=== PATIENT | female | born 1945 | race Caucasian/White ===

== ENCOUNTER 2017-11-21 14:03 | Outpatient (CLI) | payer MEDICARE, BC ==
--- NOTE | 2017-11-21 19:40 | HP ---
DATE OF SERVICE: 11/21/2017 HISTORY OF PRESENT ILLNESS: Ms. Marika Boone is a very pleasant 72-year-old, accompanied by her , who presents to the Wound Center for evaluation of an ulceration of the left medial lower leg. The patient states that she fell on 10/12/2017 and cut her left medial lower leg on one of the brakes of her walker. The patient states she was seen in the Emergency Department at [facility] where 5 interrupted sutures were placed to close the left medial lower leg wound. The patient states that she was seen by her primary care physician 7 days later. She states that at this time her doctor decided to defer suture removal. The interrupted sutures instead were discontinued 12 days after suture placement. The patient states that the day after the sutures were discontinued, the wound opened resulting in an ulceration of the left medial lower leg. PAST MEDICAL HISTORY: 1. History of breast carcinoma in 2002. 2. Parkinson's. 3. Osteoporosis. 4. Compression fracture x2 of lumbar spine. 5. Vertebral stenosis. 6. Scoliosis. PAST SURGICAL HISTORY: 1. Lumpectomy in addition to radiation therapy and chemotherapy. 2. Appendectomy. 3. Repair of rectovaginal fistula. MEDICATIONS: 1. Amantadine. 2. B complex vitamins. 3. Bioflex. 4. Calcium/magnesium oxide/vitamin D3. 5. Sinemet. 6. Vitamin D3. 7. Cosopt. 8. Duloxetine. 9. Fluticasone 10. Fluticasone/vilanterol. 11. Gaviscon. 12. ICaps. 13. Ibuprofen. 14. Levsin/SL. 15. Magnesium hydroxide. 16. Mirapex. 17. Lyrica. 18. Teriparatide. 19. Vitamin E. 20. Xalatan. 21. Zolpidem. ALLERGIES: CODEINE, NORCO, LOPERAMIDE, MORPHINE. SOCIAL HISTORY: Social history is significant for tobacco use of up to 1-1/2 packs of cigarettes per day for 20 years. The patient states that she stopped smoking 25 years ago. Social history is negative for ETOH use. FAMILY HISTORY: Family history is negative for diabetes mellitus or coronary artery disease. PHYSICAL EXAMINATION: VITAL SIGNS: Temperature 97.8, pulse 98, respirations 19, blood pressure 111/ 59. GENERAL: A 72-year-old female, sitting on chair in examination room, in no acute distress. HEENT: Normocephalic, atraumatic. NECK: No nuchal rigidity. CHEST: Clear to auscultation. CARDIOVASCULAR: Regular rate and rhythm. ABDOMEN: Soft. EXTREMITIES: An ulceration of the left medial lower leg is present, which measures approximately 1.9 x 3.0 cm. Necrotic and nonviable tissue present within the wound margins was debrided with an excisional full-thickness debridement with the use of scissors. No purulent drainage is associated with the wound. No erythema of the skin surrounding the wound is present. No maceration of the skin of the periwound is noted. A dorsalis pedis and posterior tibial pulse are both palpable on the left. No significant edema of the left foot or lower leg is present on exam today. ASSESSMENT AND PLAN: 1. Chronic venous hypertension with ulceration. Silverlon, Webril, and the 3M Coban two-layer compression system will be applied to the ulceration today. No antibiotics will be prescribed based upon the appearance of the wound. Orders will be transmitted to Home Health for dressing changes of Silverlon, Webril, and the 3M Coban 2 layer compression system 1-2 times per week between the patient's visits in the Wound Center. I will see Ms. Boone again in one week. The patient understands and is in agreement with the preceding treatment plan. 2. History of breast carcinoma. 3. Parkinson's. 4. Osteoporosis. 5. Compression fracture x2 of lumbar spine. 6. Vertebral stenosis. 7. Scoliosis. MTDD
[2017-11-26] MEDS ORDERED: Sodium Chloride 0.9% 15 ML NEB ONE (16:50)
[2017-11-26] MEDS ORDERED: Lidocaine 2% Jelly 5 ML TUBE ONE (16:50)
== END 2017-11-21 14:04 | disposition home or self-care (01) ==
LOC: WCC 14:03
PROVIDERS: ATTEND Family Medicine
DX: I87.312 Chronic venous hypertension (idiopathic) with ulcer of left lower extremity (principal); L97.929 Non-pressure chronic ulcer of unspecified part of left lower leg with unspecified severity; Z85.3 Personal history of malignant neoplasm of breast; G20 Parkinson's disease; M81.0 Age-related osteoporosis without current pathological fracture; M48.56XD Collapsed vertebra, not elsewhere classified, lumbar region, subsequent encounter for fracture with routine healing; M48.00 Spinal stenosis, site unspecified; M41.9 Scoliosis, unspecified
CPT/HCPCS: 11042; 97139; G0463; 99203

== ENCOUNTER 2017-12-03 13:30 | Outpatient (CLI) | payer MEDICARE, BC ==
[~2017-12-03 13:30] MED LIST: Lidocaine 2% Jelly 5 ML TUBE ONE; Sodium Chloride 0.9% 15 ML NEB ONE
--- NOTE | 2017-12-03 15:22 | PRG ---
DATE OF SERVICE: 12/03/2017 HISTORY: Ms. Marika Boone is a very pleasant 72-year-old who presents to the Wound Center for evaluation of an ulceration of the left medial lower leg. The patient previously stated that she fell on 10/12/2017 and cut her left medial lower leg on one of the brakes of her walker. The patient stated she was seen in the Emergency Department at [facility] where 5 interrupted sutures were placed to close the left medial lower leg wound. The patient stated that she was seen by her primary care physician 7 days later. She stated that at this time her doctor decided to defer suture removal. The interrupted sutures instead were discontinued 12 days after suture placement. The patient stated that the day after the sutures were discontinued, the wound opened, resulting in an ulceration of the left medial lower leg. After being seen in the Wound Center, the ulceration was treated with the application of Silverlon, Webril, and the 3M Coban 2-layer compression system. The patient has been receiving dressing changes of Silverlon, Webril, and the 3M Coban 2-layer compression system 1 to 2 times per week with the assistance of Home Health. PHYSICAL EXAMINATION: VITAL SIGNS: Stable. Afebrile. EXTREMITIES: An ulceration of the left medial lower leg is present, which measures approximately 2.9 x 1.4 cm. The dimensions of the wound at the time of the patient's last visit were approximately 1.9 x 3.0 cm. The wound is granulating. Necrotic and nonviable tissue present within the wound margins was debrided with an excisional full-thickness debridement with the use of a curette. No purulent drainage is associated with the wound. No erythema of the skin surrounding the wound is present. No maceration of the skin of the periwound is noted. A dorsalis pedis pulse is palpable on the left. No significant edema of the left foot or lower leg is present on exam today. ASSESSMENT AND PLAN: 1. Chronic venous hypertension with ulceration. Silverlon, Webril, and the 3M Coban 2-layer compression system will be applied to the ulceration today. Orders will again be transmitted to Home Health for dressing changes of Silverlon, Webril, and the 3M Coban 2-layer compression system 1 to 2 times per week between the patient's visits to the Wound Center. I will see Ms. Boone again in two weeks. 2. History of breast carcinoma. 3. Parkinson's. 4. Osteoporosis. 5. Compression fracture x2 of lumbar spine. 6. Vertebral stenosis. 7. Scoliosis. MTDD
== END 2017-12-03 13:31 | disposition home or self-care (01) ==
LOC: WCC 13:30
PROVIDERS: ATTEND Family Medicine
DX: I87.312 Chronic venous hypertension (idiopathic) with ulcer of left lower extremity (principal); L97.929 Non-pressure chronic ulcer of unspecified part of left lower leg with unspecified severity; Z85.3 Personal history of malignant neoplasm of breast; G20 Parkinson's disease; M81.0 Age-related osteoporosis without current pathological fracture; S32.029A Unspecified fracture of second lumbar vertebra, initial encounter for closed fracture; M48.00 Spinal stenosis, site unspecified; M41.9 Scoliosis, unspecified
CPT/HCPCS: 11042; A4218

== ENCOUNTER 2017-12-17 13:17 | Outpatient (CLI) | payer MEDICARE, BC ==
[2017-12-17] MEDS ORDERED: Sodium Chloride 0.9% 15 ML NEB ONE (14:23)
--- NOTE | 2017-12-17 15:14 | PRG ---
DATE OF SERVICE: 12/17/2017 HISTORY: Ms. Marika Boone is a very pleasant 72-year-old who presents to the Wound Center for evaluation of an ulceration of the left medial lower leg. The patient previously stated that she fell on 10/12/2017 and cut her left medial lower leg on one of the brakes of her walker. The patient stated she was seen in the Emergency Department at [facility] where 5 interrupted sutures were placed to close the left medial lower leg wound. The patient stated that she was seen by her primary care physician 7 days later. She stated that at this time her doctor decided to defer suture removal. The interrupted sutures instead were discontinued 12 days after suture placement. The patient stated that the day after the sutures were discontinued, the wound opened resulting in an ulceration of the left medial lower leg. After being seen in the Wound Center, the ulceration was treated with the application of Silverlon, Webril, and the 3M Coban 2-layer compression system. The patient has been receiving dressing changes of Silverlon, Webril, and the 3M Coban 2-layer compression system 1-2 times per week with the assistance of Home Health. PHYSICAL EXAMINATION: VITAL SIGNS: Temperature 98.0, pulse 96, respirations 17, blood pressure 107/ 60. EXTREMITIES: An ulceration of the left medial lower leg is present, which measures approximately 2.5 x 1.0 cm. The dimensions of the wound at the time of the patient's last visit were approximately 2.9 x 1.4 cm. The wound is granulating. Necrotic and nonviable tissue present within the wound margins was debrided with an excisional full-thickness debridement. No purulent drainage is associated with the wound. No erythema of the skin surrounding the wound is present. No maceration of the skin of the periwound is noted. A dorsalis pedis pulse is palpable on the left. A posterior tibial pulse is also palpable on the left. No significant edema of the left foot or lower leg is present on exam today. ASSESSMENT AND PLAN: 1. Chronic venous hypertension with ulceration. Promogran, Silverlon, Webril, and the 3M Coban 2-layer compression system will be applied to the ulceration today. Orders will be transmitted to Home Health for dressing changes of Promogran, Silverlon, Webril, and the 3M Coban 2-layer compression system 1-2 times per week between the patient's visits to the Wound Center. I will see Ms. Boone again in 3 weeks. 2. History of breast carcinoma. 3. Parkinson's. 4. Osteoporosis. 5. Compression fracture x2 of lumbar spine. 6. Vertebral stenosis. 7. Scoliosis. MTDD
== END 2017-12-17 13:18 | disposition home or self-care (01) ==
LOC: WCC 13:17
PROVIDERS: ATTEND Family Medicine
DX: I87.312 Chronic venous hypertension (idiopathic) with ulcer of left lower extremity (principal); L97.929 Non-pressure chronic ulcer of unspecified part of left lower leg with unspecified severity; G20 Parkinson's disease; M81.0 Age-related osteoporosis without current pathological fracture; S32.029A Unspecified fracture of second lumbar vertebra, initial encounter for closed fracture; M48.00 Spinal stenosis, site unspecified; M41.9 Scoliosis, unspecified; Z85.3 Personal history of malignant neoplasm of breast
CPT/HCPCS: 11042; A4218

== ENCOUNTER 2018-01-07 13:46 | Outpatient (CLI) | payer MEDICARE, BC ==
--- NOTE | 2018-01-07 15:27 | PRG ---
DATE OF SERVICE: 01/07/2018 HISTORY: Ms. Marika Boone is a very pleasant 72-year-old who presents to the Wound Center for evalua tion of an ulceration of the left medial lower leg. The patient previously stated that she fell on 12/13/2016 and cut her left medial lower leg one of the brakes of her walker. The patient stated she was seen in the Emergency Department at [facility] where 5 interrupted sutures were placed to cl ose the left medial lower leg wound. The patient stated that she was seen by her primary care physic chaya in 7 days later. She stated that at this time her doctor decided to defer suture removal. The i nterrupted sutures instead were discontinued 12 days after suture placement. The patient stated that the day after the sutures were discontinued, the wound opened resulting in an ulceration of the left medial lower leg. After being seen in the Wound Center, the ulceration was treated with the applica tion of Silverlon, Webril, and 3M Coban 2 layer compression system. More recently, the patient has b een receiving dressing changes of Promogran, Silverlon, Webril, and 3M Coban 2 layer compression syst em 1-2 times per week with the assistance of Home Health. PHYSICAL EXAMINATION: VITAL SIGNS: Temperature 98.0, pulse 90, respirations 19, blood pressure 157/72. EXTREMITIES: An ulceration of the left medial lower leg is present which measures approximately 1.0 x 0.5 cm. The wound is granulating. Necrotic and nonviable tissue present within the wound margins was debrided with an excisional full-thickness debridement. No purulent drainage is associated with the wound. No erythema of the skin surrounding the wound is present. No maceration of the skin of t he periwound is noted. A dorsalis pedis pulse is palpable on the left. No significant edema of the left foot or lower leg is present on exam today. ASSESSMENT AND PLAN: 1. Chronic venous hypertension with ulceration. Promogran, Silverlon, Webril, and the 3M Coban 2-la lucas compression system will be applied to the ulceration today. Orders will be transmitted to [facility] for dressing changes of Promogran, Silverlon, Webril, and the 3M Coban 2 layer compression syst em 1-2 times per week between the patient's visits to the Wound Center. I will see Ms. Boone again in 3 weeks if her wound is still present at this time. 2. History of breast carcinoma. 3. Parkinson's. 4. Osteoporosis. 5. Compression fracture x2 of lumbar spine. 6. Vertebral stenosis. 7. Scoliosis.
[2018-01-07] MEDS ORDERED: Sodium Chloride 0.9% 15 ML NEB ONE (19:47)
== END 2018-01-07 13:47 | disposition home or self-care (01) ==
LOC: WCC 13:46
PROVIDERS: ATTEND Family Medicine
DX: I87.312 Chronic venous hypertension (idiopathic) with ulcer of left lower extremity (principal); G20 Parkinson's disease; M81.0 Age-related osteoporosis without current pathological fracture; M48.00 Spinal stenosis, site unspecified; S32.009A Unspecified fracture of unspecified lumbar vertebra, initial encounter for closed fracture; M41.9 Scoliosis, unspecified; Z85.3 Personal history of malignant neoplasm of breast
CPT/HCPCS: A4218

== ENCOUNTER 2018-01-31 13:30 | Outpatient (CLI) | payer MEDICARE, BC ==
--- NOTE | 2018-01-31 15:27 | PRG ---
DATE OF SERVICE: 01/31/2018 HISTORY: Ms. Marika Boone is a very pleasant 72-year-old who presents to the Wound Center for evaluation of an ulceration of the left medial lower leg. The patient previously stated that she fell on 10/12/2017 and cut her left medial lower leg on one of the brakes of her walker. The patient stated she was seen in the Emergency Department at [facility] where 5 interrupted sutures were placed to close the left medial lower leg wound. The patient stated that she was seen by her primary care physician 7 days later. She stated that at this time her doctor decided to defer suture removal. The interrupted sutures instead were discontinued 12 days after suture placement. The patient stated that the day after the sutures were discontinued, the wound opened, resulting in an ulceration of the left medial lower leg. After being seen in the Wound Center, the ulceration was treated with the application of Silverlon, Webril and the 3M Coban 2-layer compression system. More recently, the patient has been receiving dressing changes of Promogran, Silverlon, Webril, and the 3M Coban 2-layer compression system 1-2 times per week with the assistance of Home Health. PHYSICAL EXAMINATION: VITAL SIGNS: Temperature 97.7, pulse 92, respirations 18, and blood pressure 127/65. EXTREMITIES: An ulceration of the left medial lower leg is present, which measures approximately 1.0 x 0.5 cm. The depth of the wound, however, is significantly less than at the time of the patient's last visit. The wound is granulating. Necrotic and nonviable tissue present within the wound margins was debrided with an excisional full-thickness debridement with the use of a curette. No purulent drainage is associated with the wound. No cellulitis of the left lower leg is appreciated. No maceration of the skin of the periwound is noted. A dorsalis pedis pulse is easily palpable on the left. No significant edema of the left foot or lower leg is present on exam today. ASSESSMENT AND PLAN: 1. Chronic venous hypertension with ulceration. Promogran, Silverlon, Webril, and the 3M Coban 2-layer compression system will be applied to the ulceration today. Orders will be transmitted to Home Health for dressing changes of Promogran, Silverlon, Webril, and the 3M Coban 2-layer compression system 1-2 times per week. I will see Ms. Boone again in 2 weeks if her wound is still present at this time. 2. History of breast carcinoma. 3. Parkinson's. 4. Osteoporosis. 5. Compression fracture x2 of lumbar spine. 6. Vertebral stenosis. 7. Scoliosis. MTDD
== END 2018-01-31 13:31 | disposition home or self-care (01) ==
LOC: WCC 13:30
PROVIDERS: ATTEND Family Medicine
DX: I87.312 Chronic venous hypertension (idiopathic) with ulcer of left lower extremity (principal); L97.929 Non-pressure chronic ulcer of unspecified part of left lower leg with unspecified severity; Z85.3 Personal history of malignant neoplasm of breast; G20 Parkinson's disease; M81.0 Age-related osteoporosis without current pathological fracture; S32.029A Unspecified fracture of second lumbar vertebra, initial encounter for closed fracture; M48.00 Spinal stenosis, site unspecified; M41.9 Scoliosis, unspecified
CPT/HCPCS: 11042; A4218

== ENCOUNTER 2018-02-27 13:53 | Outpatient (CLI) | payer MEDICARE, BC ==
--- NOTE | 2018-02-27 14:46 | PRG ---
DATE OF SERVICE: 02/27/2018 HISTORY: Ms. Marika Boone is a very pleasant 72-year-old who presents to the Wound Center for evalua tion of an ulceration of the left medial lower leg. After being seen in the Wound Center, the ulcera tion was treated with the application of Silverlon, Webril, and 3m Coban 2 layer compression system. Subsequently, the patient was treated with dressing changes of Promogran, Silverlon, Webril, and the 3m Coban 2 layer compression system with dressing changes being performed with the assistance of [facility] [employer]. The patient states that at the time of her visit by [facility] one week ago, 3m Coban 2 l garett compression system was not reapplied as per the patient's request. Instead, Promogran, Silverlo n, and Optifoam were applied to the ulceration. PHYSICAL EXAMINATION: VITAL SIGNS: Temperature 98, pulse 77, respirations 20, blood pressure 146/69. EXTREMITIES: The ulceration of the left medial lower leg measures approximately 2.0 x 0.9 cm. The d imensions of the wound at the time of the patient's visit on 01/31/2018 were approximately 1.0 x 0.5 cm. The wound is granulating. Necrotic and nonviable tissue present within the wound margins was de brided with an excisional full-thickness debridement with the use of a curette. No purulent drainage is associated with the wound. No cellulitis of the left lower leg is present. No maceration of the skin of the periwound is noted. A dorsalis pedis pulse is easily palpable on the left. Edema of th e left foot and lower leg is present on exam today. Discoloration of the skin of the left lower leg is also present secondary to hemosiderin deposition. ASSESSMENT AND PLAN: 1. Chronic venous hypertension with ulceration. Again, the patient declines application of the 3m C oban 2 layer compression system today. Therefore dressing changes of Medihoney, 4 x 4s and Optifoam or Mepilex border will be initiated. These dressing changes are to be performed 3 times per week aft er cleansing and irrigation with the assistance of [facility]. I will see Ms. Boone again in two week s. I have explained to the patient should the ulceration fail to improve in its appearance, consider ation will need to be given to resumption of treatment with the 3m Coban 2 layer compression system. Ms. Boone and her understands and are in agreement with the preceding treatment plan. 2. History of breast carcinoma. 3. Parkinson's. 4. Osteoporosis. 5. Compression fracture x2 of lumbar spine. 6. Vertebral stenosis. 7. Scoliosis.
== END 2018-02-27 13:54 | disposition home or self-care (01) ==
LOC: WCC 13:53
PROVIDERS: ATTEND Family Medicine
DX: I87.312 Chronic venous hypertension (idiopathic) with ulcer of left lower extremity (principal); L97.229 Non-pressure chronic ulcer of left calf with unspecified severity; G20 Parkinson's disease; M81.0 Age-related osteoporosis without current pathological fracture; M48.00 Spinal stenosis, site unspecified; M41.9 Scoliosis, unspecified; S32.009D Unspecified fracture of unspecified lumbar vertebra, subsequent encounter for fracture with routine healing
CPT/HCPCS: 11042

== ENCOUNTER 2018-03-13 14:44 | Outpatient (CLI) | payer MEDICARE, BC ==
--- NOTE | 2018-03-14 13:49 | PRG ---
DATE OF SERVICE: 03/13/2018 HISTORY: Ms. Marika Boone is a very pleasant 72-year-old who presents to the Wound Center for evalua tion of an ulceration of the left medial lower leg. The patient is accompanied by her son-in-law carlitos julio. Ms. Boone reports a significant increase in the size of her left medial lower leg ulceration since her last visit. The patient has no other complaints today. She denies any fever or chills. PHYSICAL EXAMINATION: VITAL SIGNS: Temperature 98.1, pulse 78, respirations 17, blood pressure 163/79. EXTREMITIES: The ulceration of the left medial lower leg measures approximately 3.2 x 2.3 cm. The d imensions of the wound at the time of the patient's visit on 02/27/2018 were approximately 2.0 x 0.9 cm. The wound is granulating. Nonviable tissue present within the wound margins were debrided with an excisional full-thickness debridement with the use of scissors. No purulent drainage is associate d with the wound. No cellulitis of the left lower leg is present. No maceration of the skin of the periwound is noted. A dorsalis pedis pulse is easily palpable on the left. No significant edema of the left foot or lower leg is present on exam today. Discoloration of the skin of the left lower leg is also present secondary to hemosiderin deposition. MatriStem sheet 3 x 3.5 cm was applied to the wound bed of the ulceration followed by Mepitel, a bolster of saline-moistened gauze, dry gauze, Webr il, and 3m Coban 2 layer compression system. ASSESSMENT AND PLAN: 1. Chronic venous hypertension with ulceration. MatriStem sheet was applied to the wound bed of the ulceration today. I will see Ms. Boone again in one week. At this time, consideration will be given to another placement of MatriStem. 2. History of breast carcinoma. 3. Parkinson's. 4. Osteoporosis. 5. Compression fracture x2 of lumbar spine. 6. Vertebral stenosis. 7. Scoliosis.
== END 2018-03-13 14:45 | disposition home or self-care (01) ==
LOC: WCC 14:44
PROVIDERS: ATTEND Family Medicine
DX: I87.312 Chronic venous hypertension (idiopathic) with ulcer of left lower extremity (principal); L97.829 Non-pressure chronic ulcer of other part of left lower leg with unspecified severity; G20 Parkinson's disease; M81.0 Age-related osteoporosis without current pathological fracture; M48.56XA Collapsed vertebra, not elsewhere classified, lumbar region, initial encounter for fracture; M48.00 Spinal stenosis, site unspecified; M41.9 Scoliosis, unspecified; Z85.3 Personal history of malignant neoplasm of breast
CPT/HCPCS: 97139; C5271; Q4166

== ENCOUNTER 2018-03-20 11:25 | Outpatient (CLI) | payer MEDICARE, BC ==
--- NOTE | 2018-03-20 13:12 | PRG ---
DATE OF SERVICE: 03/20/2018 HISTORY: Ms. Marika Boone is a very pleasant 72-year-old who presents to the Wound Center for evalua tion of an ulceration of the left medial lower leg. The patient is again accompanied by her songarcia suero today. At the time of the patient's last visit, MatriStem sheet was applied to the wound bed of t he ulceration. Ms. Boone has no complaints today. She denies any fever or chills. PHYSICAL EXAMINATION: VITAL SIGNS: Temperature 97.5, pulse 82, respirations 19, and blood pressure 149/70. EXTREMITIES: The ulceration of the left medial lower leg measures approximately 3.0 x 1.5 cm. The d imensions of the wound at the time of the patient's last visit were approximately 3.2 x 2.3 cm. The wound is granulating. No purulent drainage is associated with the wound. No cellulitis of the left lower leg is present. No maceration of the skin of the periwound is noted. No significant edema of the left foot or lower leg is present on exam today. Discoloration of the skin of the left lower leg is present secondary to hemosiderin deposition. MatriStem sheet 3 x 3.5 cm was applied to the wound bed of the ulceration followed by Mepitel, a bolster of saline-moistened gauze, dry gauze, Webril, a nd 3M Coban 2 layer compression system. ASSESSMENT AND PLAN: 1. Chronic venous hypertension with ulceration. MatriStem sheet was applied to the wound bed of the ulceration today. I will see Ms. Boone again in one week. At this time, consideration will be given to another placement of MatriStem. 2. History of breast carcinoma. 3. Parkinson's. 4. Osteoporosis. 5. Compression fracture x2 of lumbar spine. 6. Vertebral stenosis. 7. Scoliosis.
== END 2018-03-20 11:26 | disposition home or self-care (01) ==
LOC: WCC 11:25
PROVIDERS: ATTEND Family Medicine
DX: I87.312 Chronic venous hypertension (idiopathic) with ulcer of left lower extremity (principal); L97.229 Non-pressure chronic ulcer of left calf with unspecified severity; G20 Parkinson's disease; M81.0 Age-related osteoporosis without current pathological fracture; M48.00 Spinal stenosis, site unspecified; M41.9 Scoliosis, unspecified; S32.009A Unspecified fracture of unspecified lumbar vertebra, initial encounter for closed fracture; Z85.3 Personal history of malignant neoplasm of breast
CPT/HCPCS: C5271; Q4166-KX-JC

== ENCOUNTER 2018-03-27 14:37 | Outpatient (CLI) | payer MEDICARE, BC ==
--- NOTE | 2018-03-27 16:27 | PRG ---
DATE OF SERVICE: 03/27/2018 HISTORY: Ms. Marika Boone is a very pleasant 72-year-old who presents to the Wound Center for evaluation of an ulceration of the left medial lower leg. The patient is again accompanied by her son-in-law today. The patient is presently receiving treatment with MatriStem. Ms. Boone has no complaints today. She denies any fever or chills. PHYSICAL EXAMINATION: VITAL SIGNS: Temperature 97.4, pulse 84, respirations 19, blood pressure 131/ 67. EXTREMITIES: The ulceration of the left medial lower leg measures approximately 3.0 x 1.5 cm. The dimensions of the wound at the time of the patient's last visit were approximately 3.0 x 1.5 cm. The wound is granulating. No purulent drainage is associated with the wound. No cellulitis of the left lower leg is present. No maceration of the skin of the periwound is noted. No significant edema of the left foot or lower leg is present on exam today. Discoloration of the skin of the left lower leg is present secondary to hemosiderin deposition. MatriStem sheet 3 x 3.5 cm was applied to the wound bed of the ulceration followed by Mepitel, a bolster of saline- moistened gauze, dry gauze, Webril, and the 3M Coban 2-layer compression system. ASSESSMENT AND PLAN: 1. Chronic venous hypertension with ulceration. MatriStem sheet was applied to the wound bed of the ulceration today. Arrangements will be made for the patient to receive a dressing change of Mepitel, Webril, and the 3M Coban 2- layer compression system in 1 week with the assistance of Home Health. I will see Ms. Boone again in two weeks. At this time, consideration will be given to another placement of MatriStem. 2. History of breast carcinoma. 3. Parkinson's. 4. Osteoporosis. 5. Compression fracture x2 of lumbar spine. 6. Vertebral stenosis. 7. Scoliosis. MTDD
== END 2018-03-27 14:38 | disposition home or self-care (01) ==
LOC: WCC 14:37
PROVIDERS: ATTEND Family Medicine
DX: I87.312 Chronic venous hypertension (idiopathic) with ulcer of left lower extremity (principal); L97.929 Non-pressure chronic ulcer of unspecified part of left lower leg with unspecified severity; G20 Parkinson's disease; M81.0 Age-related osteoporosis without current pathological fracture; M41.9 Scoliosis, unspecified; M48.00 Spinal stenosis, site unspecified; Z85.3 Personal history of malignant neoplasm of breast
CPT/HCPCS: C5271; Q4166-KX-JC

== ENCOUNTER 2018-04-10 13:24 | Outpatient (CLI) | payer MEDICARE, BC ==
--- NOTE | 2018-04-10 16:43 | PRG ---
DATE OF SERVICE: 04/10/2018 HISTORY: Ms. Marika Boone is a very pleasant 72-year-old accompanied by her son-in-law who presents to the Wound Center for evaluation of an ulceration of the left medial lower leg. The patient is cur rently receiving treatment with MatriStem sheet. Ms. Boone has no complaints today. She denies any fe maritza or chills. PHYSICAL EXAMINATION: VITAL SIGNS: Temperature 97.9, pulse 75, respirations 15, blood pressure 146/67. EXTREMITIES: The ulceration of the left medial lower leg measures approximately 2.8 x 1.4 cm. The d imensions of the wound at the time of the patient's visit on 03/27/2018 were approximately 3.0 x 1.5 cm. The wound is granulating. No purulent drainage is associated with the wound. No cellulitis of the left lower leg is present. No maceration of the skin of the periwound is noted. A dorsalis pedi s pulse is palpable on the left. No significant edema of the left foot or lower leg is present on ex am today. Discoloration of the skin of the left lower leg is present secondary to hemosiderin deposi tion. MatriStem sheet 3 x 3.5 cm was applied to the wound bed of the ulceration followed by Mepitel, a bolster of saline-moistened gauze, dry gauze, Webril, and 3M Coban 2 layer compression system. ASSESSMENT AND PLAN: 1. Chronic venous hypertension with ulceration. MatriStem sheet was applied to the wound bed of the ulceration today. Arrangements will be made for the patient to receive a dressing change of Mepitel , 4 x 4s, Webril, and 3M Coban 2 layer compression system in 1 week with the assistance of [facility]. I will see Ms. Boone again in two weeks. At this time, consideration will be given to another plac ement of MatriStem. 2. History of breast carcinoma. 3. Parkinson's. 4. Osteoporosis. 5. Compression fracture x2 of lumbar spine. 6. Vertebral stenosis. 7. Scoliosis.
[2018-04-11] MEDS ORDERED: Lidocaine 2% Jelly 5 ML TUBE ONE (18:56)
[2018-04-11] MEDS ORDERED: Sodium Chloride 0.9% 15 ML NEB ONE (18:56)
== END 2018-04-10 13:25 | disposition home or self-care (01) ==
LOC: WCC 13:24
PROVIDERS: ATTEND Family Medicine
DX: I87.312 Chronic venous hypertension (idiopathic) with ulcer of left lower extremity (principal); S32.029A Unspecified fracture of second lumbar vertebra, initial encounter for closed fracture; M81.0 Age-related osteoporosis without current pathological fracture; G20 Parkinson's disease; M41.9 Scoliosis, unspecified; M48.00 Spinal stenosis, site unspecified; Z85.3 Personal history of malignant neoplasm of breast
CPT/HCPCS: A4218; Q4166-KX-JC

== ENCOUNTER 2018-04-25 15:52 | Outpatient (CLI) | payer MEDICARE, BC ==
--- NOTE | 2018-04-25 17:56 | PRG ---
DATE OF SERVICE: 04/25/2018 HISTORY: Ms. Marika Boone is a very pleasant 72-year-old accompanied by her son-in-law, who [facility] for evaluation of an ulceration of the left medial lower leg. Currently, the pa tient is receiving treatment with MatriStem sheet. Ms. Boone have no complaints today. She denies any fever or chills. PHYSICAL EXAMINATION: VITAL SIGNS: Temperature 97.1, pulse 86, respirations 18, blood pressure 130/71. EXTREMITIES: The ulceration of the left medial lower leg measures approximately 2.8 x 1.8 cm. The d imensions of the wound at the time of the patient's visit on 04/10/2018 were approximately 2.4 x 1.4 cm. The wound is granulating. No purulent drainage is associated with the wound. No cellulitis of the left lower leg is appreciated. Maceration of the skin of the periwound is noted. No significant edema of the left foot or lower leg is present on exam today. Discoloration of the skin of the left lower leg is present secondary to hemosiderin deposition. MatriStem sheet 3 x 3.5 cm was applied to the wound bed of the ulceration followed by Mepitel. A bolster of saline-moistened gauze, dry gauze , Webril, and the 3M Coban 2 layer compression system. ASSESSMENT AND PLAN: 1. Chronic venous hypertension with ulceration. MatriStem sheet was applied to the wound bed of the ulceration today. I will see Ms. Boone again in 1 week. Orders will be transmitted to Home Health fo r the dressings applied in clinic today to be left intact until the patient's followup visit 1 week f rom today. The patient understands and is in agreement with the preceding treatment plan. 2. History of breast carcinoma. 3. Parkinson's. 4. Osteoporosis. 5. Compression fracture x2 of lumbar spine. 6. Vertebral stenosis. 7. Scoliosis.
== END 2018-04-25 15:53 | disposition home or self-care (01) ==
LOC: WCC 15:52
PROVIDERS: ATTEND Family Medicine
DX: I87.312 Chronic venous hypertension (idiopathic) with ulcer of left lower extremity (principal); G20 Parkinson's disease; M81.0 Age-related osteoporosis without current pathological fracture; M41.9 Scoliosis, unspecified; I65.09 Occlusion and stenosis of unspecified vertebral artery; M48.56XA Collapsed vertebra, not elsewhere classified, lumbar region, initial encounter for fracture; Z85.3 Personal history of malignant neoplasm of breast
CPT/HCPCS: A4218; C5271; Q4166-KX-JC

== ENCOUNTER 2018-05-02 15:08 | Outpatient (CLI) | payer MEDICARE, BC ==
--- NOTE | 2018-05-02 17:05 | PRG ---
DATE OF SERVICE: 05/02/2018 HISTORY: Ms. Marika Boone is a very pleasant 72-year-old accompanied by her son-in-law who presents to the [facility] for evaluation of an ulceration of the left medial lower leg. The patient has co mpleted a course of treatment with MatriStem sheet. The patient has no complaints today. She denies any fever or chills. PHYSICAL EXAMINATION: VITAL SIGNS: Temperature 98.2, pulse 82, respirations 18, blood pressure 163/78. EXTREMITIES: The ulceration of the left medial lower leg measures approximately 2.5 x 1.5 cm. The d imensions of the wound at the time of the patient's visit on 04/25/2018 were approximately 2.8 x 1.8 cm. The wound is granulating. No purulent drainage is associated with wound. Erythema of the skin surrounding the wound is present and appears to be secondary to irritation from drainage associated w ith the wound. No maceration of the skin of the periwound is noted. A dorsalis pedis pulse is palpa ble on the left. No significant edema of the left foot or lower leg is present on exam today. ASSESSMENT AND PLAN: 1. Chronic venous hypertension with ulceration. The patient has completed a course of treatment wit h MatriStem sheet. Xeroform gauze, ABD, Webril, and 3M Coban 2-layer compression system will be appl ied to the ulceration today. I will see Ms. Boone again in 1 week. Orders will be transmitted to Home Health for the dressings applied in clinic today to be left intact until the patient's followup visi t in 1 week. The patient understands and is in agreement with the preceding treatment plan. 2. History of breast carcinoma. 3. Parkinson's. 4. Osteoporosis. 5. Compression fracture x2 with lumbar spine. 6. Vertebral stenosis. 7. Scoliosis.
== END 2018-05-02 15:09 | disposition home or self-care (01) ==
LOC: WCC 15:08
PROVIDERS: ATTEND Family Medicine
DX: I87.312 Chronic venous hypertension (idiopathic) with ulcer of left lower extremity (principal); S32.009D Unspecified fracture of unspecified lumbar vertebra, subsequent encounter for fracture with routine healing; M81.0 Age-related osteoporosis without current pathological fracture; G20 Parkinson's disease; M48.00 Spinal stenosis, site unspecified; M41.9 Scoliosis, unspecified; Z85.3 Personal history of malignant neoplasm of breast
CPT/HCPCS: 29581

== ENCOUNTER 2018-05-08 16:07 | Outpatient (CLI) | payer MEDICARE, BC ==
--- NOTE | 2018-05-08 16:54 | PRG ---
DATE OF SERVICE: 05/08/2018 HISTORY: Ms. Marika Boone is a very pleasant 72-year-old accompanied by her son-in-law who presents to the [facility] for evaluation of an ulceration of the left medial lower leg. The patient has co mpleted a course of treatment with MatriStem sheet. Ms. Boone has no complaints today. She denies any fever or chills. PHYSICAL EXAMINATION: VITAL SIGNS: Temperature 97.7, pulse 81, respirations 18, blood pressure 154/67. EXTREMITIES: The ulceration of the left lower leg measures approximately 2.5 x 1.4 cm. The dimensio ns of the wound at the time of the patient's visit on 05/02/2018 were approximately 2.5 x 1.5 cm. Th e wound is granulating. No purulent drainage is associated with the wound. No erythema of the skin surrounding the wound is present as was present at the time of the patient's last visit. No macerati on of the skin of the periwound is noted. A dorsalis pedis pulse is palpable on the left. No signif icant edema of the left foot or lower leg is present on exam today. ASSESSMENT AND PLAN: 1. Chronic venous hypertension with ulceration. The patient has completed a course of treatment wit h MatriStem sheet, Xeroform gauze, ABD, Webril and 3M Coban 2-layer compression system will be applie d to the ulceration today. I will see Ms. Boone again in 1 week. [facility] the dressings applied in clinic today to be left intact until the patient's followup visit in 1 week. 2. History of breast carcinoma. 3. Parkinson's. 4. Osteoporosis. 5. Compression fracture x2 with lumbar spine. 6. Vertebral stenosis. 7. Scoliosis.
== END 2018-05-08 16:08 | disposition home or self-care (01) ==
LOC: WCC 16:07
PROVIDERS: ATTEND Family Medicine
DX: I87.312 Chronic venous hypertension (idiopathic) with ulcer of left lower extremity (principal); S32.009D Unspecified fracture of unspecified lumbar vertebra, subsequent encounter for fracture with routine healing; G20 Parkinson's disease; M81.0 Age-related osteoporosis without current pathological fracture; M48.00 Spinal stenosis, site unspecified; M41.9 Scoliosis, unspecified; Z85.3 Personal history of malignant neoplasm of breast
CPT/HCPCS: 29581

== ENCOUNTER 2018-05-16 15:47 | Outpatient (CLI) | payer MEDICARE, BC ==
--- NOTE | 2018-05-16 17:47 | PRG ---
DATE OF SERVICE: 05/16/2018 HISTORY: Ms. Marika Boone is a very pleasant 72-year-old accompanied by her son-in-law who presente d to the [facility] for evaluation of an ulceration of the left medial lower leg. The patient has completed a course of treatment with MatriStem sheet. The patient has no complaints today. She julia es any fever or chills. PHYSICAL EXAMINATION: VITAL SIGNS: Temperature 97.9, pulse 83, respirations 21, blood pressure 163/76. EXTREMITIES: The ulceration of the left lower leg measures approximately 2.5 x 1.1 cm. The dimensio ns of the wound at the time of the patient's visit on 05/08/2018 were approximately 2.5 x 1.4 cm. Th e wound is granulating. No purulent drainage is associated with the wound. No erythema of the skin surrounding the wound is present. No maceration of the skin of the periwound is noted. No significa nt edema of the left foot or lower leg is present on exam today. ASSESSMENT AND PLAN: 1. Chronic venous hypertension with ulceration. The patient has completed a course of treatment wit h MatriStem sheet. Xeroform gauze, Webril, and 3M Coban 2-layer compression system will be applied t o the ulceration today. I will see Ms. Boone again in 1 week. Orders will be transmitted to [facility] for the dressings applied in clinic today to be left intact until the patient's followup visit. 2. History of breast carcinoma. 3. Parkinson's. 4. Osteoporosis. 5. Compression fracture x2 of lumbar spine. 6. Vertebral stenosis. 7. Scoliosis.
== END 2018-05-16 15:48 | disposition home or self-care (01) ==
LOC: WCC 15:47
PROVIDERS: ATTEND Family Medicine
DX: I87.312 Chronic venous hypertension (idiopathic) with ulcer of left lower extremity (principal); G20 Parkinson's disease; M81.0 Age-related osteoporosis without current pathological fracture; Z85.3 Personal history of malignant neoplasm of breast; S32.009D Unspecified fracture of unspecified lumbar vertebra, subsequent encounter for fracture with routine healing; M48.00 Spinal stenosis, site unspecified; M41.9 Scoliosis, unspecified
CPT/HCPCS: 29581

== ENCOUNTER 2018-05-22 15:56 | Outpatient (CLI) | payer MEDICARE, BC ==
--- NOTE | 2018-05-22 17:25 | PRG ---
DATE OF SERVICE: 05/22/2018 HISTORY: Ms. Marika Boone is a very pleasant 72-year-old accompanied by her son-in-law who presents to the [facility] for evaluation of an ulceration of the left medial lower leg. Ms. Boone has comple bon a course of treatment with MatriStem sheet. Ms. Boone has no complaints today. She denies any fev er or chills. PHYSICAL EXAMINATION: VITAL SIGNS: Temperature 98.1, pulse 83, respirations 20, blood pressure 127/56. EXTREMITIES: The ulceration of the left lower leg measures approximately 2.3 x 1.3 cm. The dimensio ns of the wound at the time of the patient's visit on 05/16/2018 were approximately 2.5 x 1.1 cm. Th e wound is granulating. No purulent drainage is associated with the wound. No erythema of the skin surrounding the wound is present. No maceration of the skin of the periwound is noted. No significa nt edema of the left foot or lower leg is present on exam today. ASSESSMENT AND PLAN: 1. Chronic venous hypertension with ulceration. The patient has completed a course of treatment wit h MatriStem sheet. Xeroform gauze, Webril, and 3M Coban two-layer compression system will be applied to the ulceration today. I will see Ms. Boone again in 1 week. Orders will be transmitted to [facility] for the dressings applied in clinic today to be left intact until the patient's followup visit. 2. History of breast carcinoma. 3. Parkinson's. 4. Osteoporosis. 5. Compression fracture x2 of lumbar spine. 6. Vertebral stenosis. 7. Scoliosis.
== END 2018-05-22 15:57 | disposition home or self-care (01) ==
LOC: WCC 15:56
PROVIDERS: ATTEND Family Medicine
DX: I87.312 Chronic venous hypertension (idiopathic) with ulcer of left lower extremity (principal); L97.829 Non-pressure chronic ulcer of other part of left lower leg with unspecified severity; G20 Parkinson's disease; M48.00 Spinal stenosis, site unspecified; M80.08XD Age-related osteoporosis with current pathological fracture, vertebra(e), subsequent encounter for fracture with routine healing; M41.9 Scoliosis, unspecified
CPT/HCPCS: 29581

== ENCOUNTER 2018-05-30 15:54 | Outpatient (CLI) | payer MEDICARE, BC ==
[~2018-05-30 15:54] MED LIST changes: -Lidocaine 2% Jelly 5 ML TUBE ONE
--- NOTE | 2018-05-30 17:38 | PRG ---
DATE OF SERVICE: 05/30/2018 HISTORY: Ms. Marika Boone a very pleasant 72-year-old accompanied by her son-in-law who presents to the [facility] for evaluation of an ulceration of the left medial lower leg. The patient has compl eted a course of treatment with MatriStem sheet. Ms. Boone has no complaints today. She denies any fe maritza or chills. PHYSICAL EXAMINATION: VITAL SIGNS: Temperature 98.2, pulse 80, respirations 20, blood pressure 116/59. EXTREMITIES: The ulceration of the left lower leg measures approximately 2.0 x 0.9 cm. The dimensio ns of the wound at the time of the patient's visit on 05/22/2018 were approximately 2.3 x 1.3 cm. Th e wound is granulating. No purulent drainage is associated with the wound. No erythema of the skin surrounding the wound is present. No maceration of the skin of the periwound is noted. No significa nt edema of the left foot or lower leg is present on exam today. ASSESSMENT AND PLAN: 1. Chronic venous hypertension with ulceration. The patient has completed a course of treatment wit h MatriStem sheet. Xeroform gauze, Webril and a 3M Coban two-layer compression system will be applie d to the ulceration again today. I will see Ms. Boone again in 1 week. Orders will be transmitted to Home [facility] for the dressings applied in clinic today to be left intact until the patient's followup visit. 2. History of breast carcinoma. 3. Parkinson's. 4. Osteoporosis. 5. Compression fracture x2 of lumbar spine. 6. Vertebral stenosis. 7. Scoliosis.
== END 2018-05-30 15:55 | disposition home or self-care (01) ==
LOC: WCC 15:54
PROVIDERS: ATTEND Family Medicine
DX: I87.312 Chronic venous hypertension (idiopathic) with ulcer of left lower extremity (principal); L97.829 Non-pressure chronic ulcer of other part of left lower leg with unspecified severity; G20 Parkinson's disease; M48.00 Spinal stenosis, site unspecified; M41.9 Scoliosis, unspecified; M80.88XA Other osteoporosis with current pathological fracture, vertebra(e), initial encounter for fracture; Z85.3 Personal history of malignant neoplasm of breast
CPT/HCPCS: 29581; A4218